=== PATIENT | male | born 1990 ===

== ENCOUNTER 2017-01-20 14:49 | Emergency (ER) | payer SELFPAY ==
[2017-01-20 15:32] VITALS: BP 135/86
[2017-01-20] MEDS ORDERED: Fluorescein Sodium TOPICAL* 1 MG TEST ONE (15:34)
[2017-01-20] MEDS ORDERED: Eye Irrigation Solution 30 ML BOTTLE ONE (15:34)
[2017-01-20] MEDS ORDERED: Tetracaine 0.5% OPTH.SOL 4 ML* 1 DROP BTL ONE (15:34)
[2017-01-20] MEDS ORDERED: Eye Irrigation Solution 30 ML BOTTLE LEFT EYE ONE (15:40)
[2017-01-20] MEDS ORDERED: Fluorescein Sodium TOPICAL* 1 MG TEST OPHTHALMIC ONE (15:40)
[2017-01-20] MEDS ORDERED: Tetracaine 0.5% OPTH.SOL 4 ML* 1 DROP BTL LEFT EYE ONE (15:40)
--- NOTE | 2017-01-20 16:33 | UC ---
Eye Complaint HPI - HPI Summary HPI Summary: AT NOON, LEFT EYE SCRATCHED WITH NAIL OF DOG. SINCE TIME OF INJURY HAS HAD LIGHT SENSITIVITY AND IRRITATION. NO CHANGES IN VISION. NO DISCHARGE. - History of Current Complaint Chief Complaint: UCEye Stated Complaint: LEFT EYE COMPLAINT Time Seen by Provider: 01/20/17 15:07 Hx Obtained From: Patient Onset/Duration: Sudden Onset, Lasting Hours, Still Present Timing: Hours Severity Initially: Mild Severity Currently: Moderate Pain Intensity: 5 Pain Scale Used: 0-10 Numeric Location of Injury: Other - CORNEA LEFT Character: Dull Aggravating Factor(s): Light, Blinking Alleviating Factor(s): Darkness Associated Signs And Symptoms: Positive: Drainage (Clear). Negative: Vision Impairment Right, Vision Impairment Left, Fever, Swelling - Risk Factors Penetrating Injury Risk Factor: Negative Globe Rupture Risk Factors: Negative Acute Glaucoma Risk Factors: Negative Optic Artery Occlusion Risk Factors: Negative - Allergies/Home Medications Allergies/Adverse Reactions: Allergies Allergy/AdvReac Type Severity Reaction Status Date / Time No Known Allergies Allergy Verified 01/20/17 15:32 PMH/Surg Hx/FS Hx/Imm Hx Previously Healthy: Yes - Surgical History Surgical History: Yes Surgery Procedure, Year, and Place: extra thumb removed as a baby - Family History Known Family History: Negative: Respiratory Disease - Social History Occupation: Employed Full-time Lives: With Family Alcohol Use: Occasionally Alcohol Amount: weekends Substance Use Type: None Smoking Status (MU): Never Smoked Tobacco Review of Systems Constitutional: Negative Skin: Negative Eyes: Eye Redness - LEFT ENT: Negative Respiratory: Negative Cardiovascular: Negative Gastrointestinal: Negative Genitourinary: Negative Motor: Negative Neurovascular: Negative Musculoskeletal: Negative Neurological: Negative Psychological: Negative All Other Systems Reviewed And Are Negative: Yes Physical Exam Triage Information Reviewed: Yes Appearance: Well-Appearing, No Pain Distress, Well-Nourished Vital Signs: Initial Vital Signs Temp 98.4 F 01/20/17 15:28 Pulse 73 01/20/17 15:28 Resp 15 01/20/17 15:28 BP 135/86 01/20/17 15:28 Pulse Ox 100 01/20/17 15:28 Eyes: Positive: Other: - FLUORESCEIN UPTAKE LEFT EYE CORNEA AT 1 OCLOCK ENT Exam: Normal ENT: Positive: Normal ENT inspection, Hearing grossly normal, Pharynx normal, TMs normal Dental Exam: Normal Neck exam: Normal Neck: Positive: Supple, Nontender Respiratory Exam: Normal Respiratory: Positive: Chest non-tender, Lungs clear, Normal breath sounds, No respiratory distress Cardiovascular Exam: Normal Cardiovascular: Positive: RRR, No Murmur, Pulses Normal, Brisk Capillary Refill Abdominal Exam: Normal Musculoskeletal Exam: Normal Musculoskeletal: Positive: Strength Intact, ROM Intact Neurological Exam: Normal Psychological Exam: Normal Skin Exam: Normal Eye Complaint Course/Dx - Differential Dx/Diagnosis Differential Diagnosis/HQI/PQRI: Conjunctivitis, Corneal Abrasion, Orbital Cellulitis Provider Diagnoses: LEFT CORNEAL ABRASION Discharge - Discharge Plan Condition: Stable Disposition: HOME Prescriptions: Erythromycin OPTH OINT* 1 applic LEFT EYE TID #1 tube Patient Education Materials: Corneal Abrasion (ED) Referrals: [facility] [place] [facility] [Outside] Maxx Nunez MD [Medical Doctor] -
== END 2017-01-20 15:59 | disposition home or self-care (01) ==
LOC: UCCORT 14:49
DX: S05.02XA Injury of conjunctiva and corneal abrasion without foreign body, left eye, initial encounter (principal); W54.8XXA Other contact with dog, initial encounter
CPT/HCPCS: 99202; A9270-GY; G0463